=== PATIENT | female | born 1970 | race Caucasian/White ===

== ENCOUNTER 2017-06-07 12:29 | Inpatient (IN) | payer OTHER ==
[2017-06-07] VITALS (7 sets, daily range): BP systolic 109–138; BP diastolic 73–89
[~2017-06-07] VITALS: Ht 157.4 cm; Wt 65.3 kg
--- NOTE | ~2017-06-07 | PR ---
[place], [place] PROGRESS NOTE NAME: [id number] UNIT #: [id number] ROOM: [id number] DOCTOR: JOSE WRIGHT MD BIRTHDATE: [birth year] DOS: 06/09/2017 SUBJECTIVE: The patient was seen at her bedside today, 06/09/2017. She continues to complain of palpitations, slight breathlessness and moderate headache. She states that in general, she feels a bit better, but still does not feel well. Last evening, I did review her echocardiogram at length. I do not believe that she has a classic bicuspid aortic valve, although the valve does seem a bit odd appearing. There are 3 leaflets and the leaflets are fairly thin. Nonetheless, there is a peak gradient of 34 mmHg across the valve with a mean gradient of 20 mmHg. The effective outflow tract area is 1.1 cm2 consistent with moderate aortic stenosis. This is not expected based on the appearance of the valve and suggests that some other outflow tract obstruction is present, which I am not visualizing. PHYSICAL EXAMINATION: VITAL SIGNS: Today, her pulse is 90 and regular, blood pressure is 108/69. She is afebrile. She weighs 65.3 kilograms with a body mass index of 26.4. HEENT: Normocephalic, atraumatic. NECK: Supple. She has no jugular distention. Carotids are full. LUNGS: Respirations are unlabored. Chest is clear to auscultation and percussion. There is no presacral edema or chest wall tenderness. HEART: Has a regular rhythm with a soft S4 gallop. She has a grade 2/6 systolic ejection murmur along the upper left sternal border radiating towards the neck. No diastolic murmurs are present. The PMI is not displaced. ABDOMEN: Soft and normoactive. EXTREMITIES: Showed no edema. IMPRESSION: 1. Near syncope. 2. Headaches, etiology not clear, but probably due to migraine. 3. Systolic ejection murmur with outflow tract gradient. Etiology of the outflow tract gradient is not clear. PLAN: I discussed with the patient my findings and my concerns. I believe that further assessment with a transesophageal echocardiogram is appropriate and she has agreed. She does understand that there is a risk of sore throat, vomiting, aspiration, esophageal damage, etc. along with anesthesia reactions. Despite these risks, she does agree to proceed. Please see the [facility] report which will follow later today. I thank the hospitalist physicians for asking our advice regarding her care. [place], [place] PROGRESS NOTE NAME: THAIS GALVEZ UNIT #: [id number] ROOM: [facility] DOCTOR: JOSE WRIGHT MD BIRTHDATE: [birth year] JOSE WRIGHT MD CM:PNTRANS [id number] JOSE WRIGHT MD 06/09/17 1253 [id number]
[~2017-06-07 12:29] MED LIST: NAPROSYN500 MG PO; RELPAX40 MG PO
[2017-06-07] MEDS ORDERED: MUSCLE RELAXER (13:01)
[2017-06-07] MEDS ORDERED: FLONASE ALLERG9.9 ML INH (13:01)
[2017-06-07] MEDS ORDERED: PERCOCET 5-3251 EACH PO (13:02)
[2017-06-07 13:45] LABS: BASO % 0.6 % (0.0-1.0); EOS % 0.8 % (1.0-4.0); HEMATOCRIT 37.6 % (37.0-47.0); HEMOGLOBIN 12.7 g/dl (12.0-16.0); LYMPH # 0.7 10*3/uL (1.3-4.4); LYMPH % 13.6 % (27.0-41.0); MEAN CELL VOLUME 92.6 fl (81.0-99.0); MEAN CORPUSCULAR HGB 31.3 pg (27.0-31.0); MEAN CORPUSCULAR HGB CONC 33.8 g/dl (33.0-37.0); MEAN PLATELET VOLUME 9.7 fl (9.6-12.3); MONO # 0.6 10*3/uL (0.1-1.0); MONO % 11.7 % (3.0-9.0); NEUT # 3.8 10*3/uL (2.3-7.9); NEUT % 72.9 % (47.0-73.0); PLATELET COUNT AUTOMATED 219 10*3/uL (130-400); RED BLOOD COUNT 4.06 10*6/uL (4.10-5.10); RED CELL DISTRI WIDTH 11.6 % (0-14.5); WHITE BLOOD COUNT 5.2 10*3/uL (4.8-10.8)
[2017-06-07 14:03] LABS: ALBUMIN 3.3 gm/dl (3.1-4.5); ALKALINE PHOSPHATASE 79 U/L (45-117); BUN 14 mg/dl (7-24); CHLORIDE 102 mmol/L (98-107); CREATININE 0.81 mg/dL (0.55-1.02); LIPASE 133 U/L (73-393); MAGNESIUM 2.2 mg/dL (1.5-2.1); SGOT/AST 15 IU/L (3-35); SGPT/ALT 15 U/L (12-78); SODIUM 137 mmol/L (136-145); TOTAL PROTEIN 7.2 gm/dL (6.4-8.2)
[2017-06-07 14:05] LABS: BETA-HCG, QUANT < 1.0 mIU/mL (1-3)
[2017-06-07] MEDS ORDERED: CYCLOBENZAPRINE10 MG PO (16:36)
[2017-06-07] MEDS ORDERED: ZYRTEC10 MG PO (16:37)
[2017-06-08] VITALS: BP 128/84
[2017-06-08 06:59] LABS: BASO % 0.7 % (0.0-1.0); EOS # 0.1 10*3/uL (0.0-0.4); EOS % 2.5 % (1.0-4.0); HEMATOCRIT 35.9 % (37.0-47.0); HEMOGLOBIN 11.8 g/dl (12.0-16.0); LYMPH # 1.7 10*3/uL (1.3-4.4); LYMPH % 38.2 % (27.0-41.0); MEAN CELL VOLUME 93.7 fl (81.0-99.0); MEAN CORPUSCULAR HGB 30.8 pg (27.0-31.0); MEAN CORPUSCULAR HGB CONC 32.9 g/dl (33.0-37.0); MONO # 0.6 10*3/uL (0.1-1.0); MONO % 12.5 % (3.0-9.0); NEUT # 2.1 10*3/uL (2.3-7.9); NEUT % 45.7 % (47.0-73.0); PLATELET COUNT AUTOMATED 230 10*3/uL (130-400); RED BLOOD COUNT 3.83 10*6/uL (4.10-5.10); RED CELL DISTRI WIDTH 11.7 % (0-14.5); WHITE BLOOD COUNT 4.5 10*3/uL (4.8-10.8)
[2017-06-08 07:40] LABS: BUN 12 mg/dl (7-24); CHLORIDE 106 mmol/L (98-107); CHOLESTEROL 185 mg/dL (<200); CREATININE 0.62 mg/dL (0.55-1.02); MAGNESIUM 2.2 mg/dL (1.5-2.1); PHOSPHOROUS 2.5 mg/dL (2.5-4.9); SODIUM 141 mmol/L (136-145); TRIGLYCERIDES 73 mg/dl (<150); VLDL CHOLESTEROL 15 mg/dL (6-40)
[2017-06-08 07:48] LABS: FREE T4 1.01 ng/dl (0.76-1.46); HDL CHOLESTEROL 53 mg/dl (40-60); LDL CHOLESTEROL 117 mg/dL (9-159)
[2017-06-08 07:58] LABS: VITAMIN D, 25-HYDROXY 18.3 ng/mL (30-100)
[2017-06-08 08:00] VITALS: BP 122/78
[2017-06-08 12:00] VITALS: BP 136/78
[2017-06-08 16:00] VITALS: BP 122/79
[2017-06-08] MEDS ORDERED: MAXALT10 MG PO (16:43)
[2017-06-08 20:00] VITALS: BP 127/80
[2017-06-09] VITALS (9 sets, daily range): BP systolic 107–154; BP diastolic 67–94
[2017-06-09 06:55] LABS: BASO % 0.7 % (0.0-1.0); EOS # 0.2 10*3/uL (0.0-0.4); EOS % 3.6 % (1.0-4.0); HEMATOCRIT 33.5 % (37.0-47.0); LYMPH # 1.8 10*3/uL (1.3-4.4); LYMPH % 43.8 % (27.0-41.0); MEAN CELL VOLUME 94.9 fl (81.0-99.0); MEAN CORPUSCULAR HGB 31.2 pg (27.0-31.0); MEAN CORPUSCULAR HGB CONC 32.8 g/dl (33.0-37.0); MEAN PLATELET VOLUME 9.7 fl (9.6-12.3); MONO # 0.4 10*3/uL (0.1-1.0); MONO % 9.9 % (3.0-9.0); NEUT # 1.7 10*3/uL (2.3-7.9); NEUT % 41.8 % (47.0-73.0); PLATELET COUNT AUTOMATED 223 10*3/uL (130-400); RED BLOOD COUNT 3.53 10*6/uL (4.10-5.10); RED CELL DISTRI WIDTH 11.9 % (0-14.5); WHITE BLOOD COUNT 4.2 10*3/uL (4.8-10.8)
[2017-06-10] VITALS: BP 122/74
[2017-06-10 06:38] LABS: BASO % 0.4 % (0.0-1.0); EOS # 0.1 10*3/uL (0.0-0.4); EOS % 2.7 % (1.0-4.0); HEMATOCRIT 34.6 % (37.0-47.0); HEMOGLOBIN 11.5 g/dl (12.0-16.0); LYMPH # 1.9 10*3/uL (1.3-4.4); LYMPH % 38.8 % (27.0-41.0); MEAN CELL VOLUME 93.3 fl (81.0-99.0); MEAN CORPUSCULAR HGB CONC 33.2 g/dl (33.0-37.0); MEAN PLATELET VOLUME 9.9 fl (9.6-12.3); MONO # 0.3 10*3/uL (0.1-1.0); MONO % 5.6 % (3.0-9.0); NEUT # 2.5 10*3/uL (2.3-7.9); NEUT % 52.3 % (47.0-73.0); PLATELET COUNT AUTOMATED 265 10*3/uL (130-400); RED BLOOD COUNT 3.71 10*6/uL (4.10-5.10); RED CELL DISTRI WIDTH 11.5 % (0-14.5); WHITE BLOOD COUNT 4.8 10*3/uL (4.8-10.8)
[2017-06-10 08:00] VITALS: BP 132/84
[2017-06-10] MEDS ORDERED: INDERAL LA60 M1 PO (11:02)
[2017-06-10] MEDS ORDERED: VITAMIN D50000 UNIT PO (11:02)
== END 2017-06-10 12:03 | disposition home or self-care (01) | DRG 312 ==
LOC: ED 12:29 → EDHOLD 15:58 → 5E 15:58
PROVIDERS: Emergency Medicine; Internal Medicine; ADMIT Internal Medicine
PROC: B24BZZ4 Ultrasonography of Heart with Aorta, Transesophageal (ICD-10-PCS; principal; 2017-06-09)
DX: R55 Syncope and collapse (principal); E44.1 Mild protein-calorie malnutrition; Q23.1 Congenital insufficiency of aortic valve; G43.909 Migraine, unspecified, not intractable, without status migrainosus; R00.0 Tachycardia, unspecified; M47.22 Other spondylosis with radiculopathy, cervical region; M50.30 Other cervical disc degeneration, unspecified cervical region; D72.810 Lymphocytopenia; R70.0 Elevated erythrocyte sedimentation rate; R73.9 Hyperglycemia, unspecified; E83.41 Hypermagnesemia; D64.9 Anemia, unspecified; E55.9 Vitamin D deficiency, unspecified; Z90.710 Acquired absence of both cervix and uterus; Z98.51 Tubal ligation status; Z83.3 Family history of diabetes mellitus; Z82.49 Family history of ischemic heart disease and other diseases of the circulatory system; Z83.6 Family history of other diseases of the respiratory system; Z84.89 Family history of other specified conditions; Z79.899 Other long term (current) drug therapy; Z88.2 Allergy status to sulfonamides; Z88.8 Allergy status to other drugs, medicaments and biological substances; Z68.26 Body mass index [BMI] 26.0-26.9, adult

== ENCOUNTER → 2017-08-03 | Outpatient (CLI) | payer OTHER ==
[~2017-08-03] MED LIST changes: +CYCLOBENZAPRINE10 MG PO; +FLONASE ALLERG9.9 ML INH; +INDERAL LA60 M1 PO; +MAXALT10 MG PO; +MUSCLE RELAXER; +PERCOCET 5-3251 EACH PO; +VITAMIN D50000 UNIT PO; +ZYRTEC10 MG PO
== END | disposition home or self-care (01) ==
LOC: LAB 09:48
PROVIDERS: Psychiatry & Neurology Neurology
DX: G43.709 Chronic migraine without aura, not intractable, without status migrainosus (principal)

== ENCOUNTER → 2020-01-13 | Outpatient (CLI) | payer BC | END | disposition home or self-care (01) | LOC: CARD 09:27 | DX: I35.1 Nonrheumatic aortic (valve) insufficiency (principal); I35.0 Nonrheumatic aortic (valve) stenosis ==

== ENCOUNTER 2020-10-21 17:18 | Emergency (ER) | payer BC ==
[~2020-10-21] VITALS: Ht 154.9 cm; Wt 68.0 kg
[2020-10-21 18:01] LABS: BASO % 0.5 % (0.0-1.0); EOS # 0.2 10*3/uL (0.0-0.4); EOS % 3.2 % (1.0-4.0); HEMATOCRIT 43.4 % (37.0-47.0); LYMPH # 2.5 10*3/uL (1.3-4.4); LYMPH % 34.4 % (27.0-41.0); MEAN CELL VOLUME 93.9 fl (81.0-99.0); MEAN CORPUSCULAR HGB 30.1 pg (27.0-31.0); MEAN PLATELET VOLUME 9.6 fl (9.6-12.3); MONO # 0.5 10*3/uL (0.1-1.0); MONO % 6.8 % (3.0-9.0); PLATELET COUNT AUTOMATED 268 10*3/uL (130-400); RED BLOOD COUNT 4.62 10*6/uL (4.10-5.10); RED CELL DISTRI WIDTH 11.9 % (0-14.5); WHITE BLOOD COUNT 7.3 10*3/uL (4.8-10.8)
[2020-10-21 18:10] LABS: ACT PARTIAL THROMBO TIME 24.1 SECONDS (20.0-32.1); INTERNATIONAL NORM RATIO 0.9 (2.0-3.5)
[2020-10-21 18:15] LABS: ALKALINE PHOSPHATASE 104 U/L (45-117); BUN 12 mg/dl (7-24); CHLORIDE 106 mmol/L (98-107); CREATININE 0.79 mg/dL (0.55-1.02); LIPASE 112 U/L (73-393); POTASSIUM 3.7 mmol/L (3.5-5.1); SGOT/AST 13 IU/L (3-35); SGPT/ALT 23 U/L (12-78); SODIUM 138 mmol/L (136-145); TOTAL PROTEIN 7.6 gm/dL (6.4-8.2)
[2020-10-21 18:18] LABS: TROPONIN I < 0.015 ng/ml (<0.045)
== END 2020-10-21 19:00 | disposition home or self-care (01) ==
LOC: ED 17:18
PROVIDERS: Emergency Medicine
DX: M79.661 Pain in right lower leg (principal); Z98.890 Other specified postprocedural states; Z98.51 Tubal ligation status; Z90.710 Acquired absence of both cervix and uterus; Z88.2 Allergy status to sulfonamides; Z79.899 Other long term (current) drug therapy

== ENCOUNTER → 2020-10-22 | Outpatient (CLI) | payer BC ==
[~2020-10-22] MED LIST changes: +ATIVAN0.5 MG PO; +ETODOLAC600 MG PO
== END | disposition home or self-care (01) ==
LOC: MAMMO 10:19
PROVIDERS: ATTEND Family Medicine
DX: Z12.31 Encounter for screening mammogram for malignant neoplasm of breast (principal); N63.21 Unspecified lump in the left breast, upper outer quadrant

== ENCOUNTER 2020-10-25 09:22 | Observation (INO) | payer BC ==
[2020-10-25] VITALS (14 sets, daily range): BP systolic 103–142; BP diastolic 62–91
[~2020-10-25] VITALS: Ht 165.1 cm; Wt 68.0 kg
[~2020-10-25 09:22] MED LIST changes: -ATIVAN0.5 MG PO; -ETODOLAC600 MG PO
[2020-10-25 09:41] LABS: BASO # 0.1 10*3/uL (0.0-0.1); BASO % 0.9 % (0.0-1.0); EOS # 0.2 10*3/uL (0.0-0.4); EOS % 3.4 % (1.0-4.0); HEMATOCRIT 42.3 % (37.0-47.0); LYMPH # 1.7 10*3/uL (1.3-4.4); LYMPH % 28.9 % (27.0-41.0); MEAN CELL VOLUME 90.4 fl (81.0-99.0); MEAN CORPUSCULAR HGB 29.7 pg (27.0-31.0); MEAN CORPUSCULAR HGB CONC 32.9 g/dl (33.0-37.0); MEAN PLATELET VOLUME 9.4 fl (9.6-12.3); MONO # 0.5 10*3/uL (0.1-1.0); MONO % 8.4 % (3.0-9.0); NEUT # 3.4 10*3/uL (2.3-7.9); NEUT % 58.2 % (47.0-73.0); PLATELET COUNT AUTOMATED 271 10*3/uL (130-400); RED BLOOD COUNT 4.68 10*6/uL (4.10-5.10); RED CELL DISTRI WIDTH 11.8 % (0-14.5); WHITE BLOOD COUNT 5.8 10*3/uL (4.8-10.8)
[2020-10-25 09:51] LABS: ACT PARTIAL THROMBO TIME 25.2 SECONDS (20.0-32.1); INTERNATIONAL NORM RATIO 0.9 (2.0-3.5)
[2020-10-25 09:57] LABS: ALKALINE PHOSPHATASE 95 U/L (45-117); BUN 13 mg/dl (7-24); CHLORIDE 107 mmol/L (98-107); CREATININE 0.85 mg/dL (0.55-1.02); POTASSIUM 3.9 mmol/L (3.5-5.1); SGOT/AST 15 IU/L (3-35); SGPT/ALT 23 U/L (12-78); SODIUM 140 mmol/L (136-145); TOTAL PROTEIN 7.4 gm/dL (6.4-8.2)
[2020-10-25 09:59] LABS: TROPONIN I < 0.015 ng/ml (<0.045)
[2020-10-25 10:09] LABS: LIPASE 86 U/L (73-393)
[2020-10-25] MEDS ORDERED: ETODOLAC600 MG PO (12:47)
[2020-10-26 06:46] LABS: ACT PARTIAL THROMBO TIME 25.1 SECONDS (20.0-32.1); ALBUMIN 3.7 gm/dl (3.1-4.5); ALKALINE PHOSPHATASE 88 U/L (45-117); BASO % 0.6 % (0.0-1.0); BUN 16 mg/dl (7-24); CHLORIDE 105 mmol/L (98-107); CHOLESTEROL 192 mg/dL (<200); CREATININE 0.86 mg/dL (0.55-1.02); EOS # 0.2 10*3/uL (0.0-0.4); EOS % 3.4 % (1.0-4.0); FREE T4 1.25 ng/dl (0.76-1.46); HDL CHOLESTEROL 62 mg/dl (40-60); HEMATOCRIT 42.9 % (37.0-47.0); LDL CHOLESTEROL 114 mg/dL (9-159); LYMPH # 2.1 10*3/uL (1.3-4.4); LYMPH % 41.2 % (27.0-41.0); MEAN CELL VOLUME 92.5 fl (81.0-99.0); MEAN CORPUSCULAR HGB 29.5 pg (27.0-31.0); MEAN CORPUSCULAR HGB CONC 31.9 g/dl (33.0-37.0); MEAN PLATELET VOLUME 9.6 fl (9.6-12.3); MONO # 0.4 10*3/uL (0.1-1.0); MONO % 8.6 % (3.0-9.0); NEUT # 2.3 10*3/uL (2.3-7.9); PLATELET COUNT AUTOMATED 225 10*3/uL (130-400); POTASSIUM 3.4 mmol/L (3.5-5.1); RED BLOOD COUNT 4.64 10*6/uL (4.10-5.10); RED CELL DISTRI WIDTH 11.9 % (0-14.5); SGOT/AST 10 IU/L (3-35); SGPT/ALT 20 U/L (12-78); SODIUM 140 mmol/L (136-145); TOTAL PROTEIN 6.9 gm/dL (6.4-8.2); TRIGLYCERIDES 79 mg/dl (<150); VLDL CHOLESTEROL 16 mg/dL (6-40)
[2020-10-26 07:24] LABS: VITAMIN D, 25-HYDROXY 27.1 ng/mL (30-100)
[2020-10-26 08:00] VITALS: BP 110/64
[2020-10-26 12:00] VITALS: BP 108/68
== END 2020-10-26 17:00 | disposition home or self-care (01) ==
LOC: ED 09:22 → EDHOLD 12:06 → 5E 22:37
PROVIDERS: Emergency Medicine; Family Medicine; ADMIT Internal Medicine; ATTEND Internal Medicine
DX: R07.89 Other chest pain (principal); R79.89 Other specified abnormal findings of blood chemistry; R73.9 Hyperglycemia, unspecified; M19.90 Unspecified osteoarthritis, unspecified site; R06.02 Shortness of breath; E87.6 Hypokalemia; I35.0 Nonrheumatic aortic (valve) stenosis; Q23.1 Congenital insufficiency of aortic valve; E55.9 Vitamin D deficiency, unspecified; Z98.890 Other specified postprocedural states; Z90.710 Acquired absence of both cervix and uterus

== ENCOUNTER → 2020-10-29 | Outpatient (CLI) | payer BC ==
[~2020-10-29] MED LIST changes: +ATIVAN0.5 MG PO; +ETODOLAC600 MG PO
[2020-10-29 16:36] LABS: BASO % 0.6 % (0.0-1.0); EOS # 0.2 10*3/uL (0.0-0.4); EOS % 3.5 % (1.0-4.0); LYMPH # 1.9 10*3/uL (1.3-4.4); LYMPH % 36.3 % (27.0-41.0); MEAN CORPUSCULAR HGB 30.4 pg (27.0-31.0); MEAN CORPUSCULAR HGB CONC 32.3 g/dl (33.0-37.0); MEAN PLATELET VOLUME 9.5 fl (9.6-12.3); MONO # 0.4 10*3/uL (0.1-1.0); MONO % 7.8 % (3.0-9.0); NEUT # 2.6 10*3/uL (2.3-7.9); NEUT % 51.6 % (47.0-73.0); PLATELET COUNT AUTOMATED 224 10*3/uL (130-400); RED BLOOD COUNT 4.15 10*6/uL (4.10-5.10); RED CELL DISTRI WIDTH 11.9 % (0-14.5); WHITE BLOOD COUNT 5.1 10*3/uL (4.8-10.8)
[2020-10-30 14:08] LABS: ANTI-DSDNA ANTIBODIES <1 IU/mL (0-9); ANTI-RNP ANTIBODIES <0.2 AI (0.0-0.9); ANTICHROMATIN ANTIBODIES <0.2 AI (0.0-0.9); ANTISCLERODERMA-70 AB <0.2 AI (0.0-0.9); SJOGREN ANTI-SS-A <0.2 AI (0.0-0.9); SJOREN AB, ANTI-SS-B <0.2 AI (0.0-0.9)
== END | disposition home or self-care (01) ==
LOC: LAB 15:30 → US 15:30
PROVIDERS: ATTEND Family Medicine
DX: S40.021A Contusion of right upper arm, initial encounter (principal); E55.9 Vitamin D deficiency, unspecified; M25.50 Pain in unspecified joint; R53.82 Chronic fatigue, unspecified; X58.XXXA Exposure to other specified factors, initial encounter; Y93.89 Activity, other specified; Y92.89 Other specified places as the place of occurrence of the external cause; Y99.8 Other external cause status

== ENCOUNTER 2020-11-03 10:04 | Emergency (ER) | payer BC ==
[~2020-11-03] VITALS: Wt 68.0 kg
[~2020-11-03 10:04] MED LIST changes: -ATIVAN0.5 MG PO
[2020-11-03 10:40] LABS: BASO % 0.5 % (0.0-1.0); EOS # 0.3 10*3/uL (0.0-0.4); EOS % 4.6 % (1.0-4.0); HEMATOCRIT 39.8 % (37.0-47.0); LYMPH # 1.4 10*3/uL (1.3-4.4); LYMPH % 25.8 % (27.0-41.0); MEAN CELL VOLUME 93.2 fl (81.0-99.0); MEAN CORPUSCULAR HGB CONC 32.2 g/dl (33.0-37.0); MEAN PLATELET VOLUME 9.6 fl (9.6-12.3); MONO # 0.3 10*3/uL (0.1-1.0); MONO % 5.9 % (3.0-9.0); NEUT # 3.4 10*3/uL (2.3-7.9); NEUT % 62.8 % (47.0-73.0); PLATELET COUNT AUTOMATED 260 10*3/uL (130-400); RED BLOOD COUNT 4.27 10*6/uL (4.10-5.10); RED CELL DISTRI WIDTH 11.9 % (0-14.5); WHITE BLOOD COUNT 5.5 10*3/uL (4.8-10.8)
[2020-11-03 10:52] LABS: ACT PARTIAL THROMBO TIME 24.8 SECONDS (20.0-32.1); INTERNATIONAL NORM RATIO 0.9 (2.0-3.5)
[2020-11-03 10:55] LABS: ALBUMIN 3.6 gm/dl (3.1-4.5); ALKALINE PHOSPHATASE 91 U/L (45-117); BUN 15 mg/dl (7-24); CHLORIDE 108 mmol/L (98-107); CREATININE 0.82 mg/dL (0.55-1.02); LIPASE 85 U/L (73-393); SGOT/AST 14 IU/L (3-35); SGPT/ALT 22 U/L (12-78); SODIUM 141 mmol/L (136-145); TOTAL PROTEIN 6.9 gm/dL (6.4-8.2); TROPONIN I < 0.015 ng/ml (<0.045)
[2020-11-03 12:31] LABS: BILIRUBIN Negative (Negative); BLOOD Negative (Negative); CLARITY Clear (Clear); COLOR Yellow (Yellow); GLUCOSE Negative (Negative); KETONE Negative (Negative); LEUKO ESTERASE Negative (Negative); NITRITE Negative (Negative); SPECIFIC GRAVITY <= 1.005 (1.001-1.030); UROBILINOGEN 0.2 E.U./dl (0.0-1.0)
[2020-11-03 12:42] LABS: URINE OPIATES < 300 (300ng/ml)
[2020-11-03] MEDS ORDERED: ATIVAN0.5 MG PO (12:45)
[2020-11-03 12:51] LABS: URINE AMPHETAMINES > 1000 (1000ng/ml); URINE BARBITURATES < 200 (200ng/ml); URINE BENZODIAZEPINES < 200 (200ng/ml); URINE CANNABINOIDS (THC) < 50 (50ng/ml); URINE COCAINE < 300 (300ng/ml); URINE METHADONE < 300 (300ng/ml); URINE PHENCYCLIDINE < 25 (25ng/ml)
== END 2020-11-03 13:14 | disposition home or self-care (01) ==
LOC: ED 10:04
PROVIDERS: Emergency Medicine; Nurse Practitioner
DX: R59.1 Generalized enlarged lymph nodes (principal); F41.9 Anxiety disorder, unspecified; K59.00 Constipation, unspecified; R92.8 Other abnormal and inconclusive findings on diagnostic imaging of breast; H60.91 Unspecified otitis externa, right ear; Z88.2 Allergy status to sulfonamides; Z79.899 Other long term (current) drug therapy; Z90.710 Acquired absence of both cervix and uterus; Z98.51 Tubal ligation status; Z98.890 Other specified postprocedural states; Z20.822 Contact with and (suspected) exposure to COVID-19

== ENCOUNTER 2020-11-06 14:59 | Emergency (ER) | payer BC ==
[~2020-11-06] VITALS: Ht 157.4 cm; Wt 72.6 kg
[~2020-11-06 14:59] MED LIST changes: +ATIVAN0.5 MG PO
== END 2020-11-06 15:10 | disposition left against medical advice (07) ==
LOC: ED 14:59
DX: R06.02 Shortness of breath (principal); R22.0 Localized swelling, mass and lump, head; Z53.21 Procedure and treatment not carried out due to patient leaving prior to being seen by health care provider

== ENCOUNTER → 2020-11-12 | Outpatient (CLI) | payer BC | END | disposition home or self-care (01) | LOC: MAMMO 07:51 | PROVIDERS: ATTEND Family Medicine | DX: R92.1 Mammographic calcification found on diagnostic imaging of breast (principal); N63.20 Unspecified lump in the left breast, unspecified quadrant ==

== ENCOUNTER → 2022-11-11 | Outpatient (CLI) | payer MEDICAID ==
[2022-11-11 14:57] LABS: BASO % 0.9 % (0.0-1.0); EOS # 0.2 10*3/uL (0.0-0.4); EOS % 4.3 % (1.0-4.0); HEMATOCRIT 40.9 % (37.0-47.0); LYMPH # 1.4 10*3/uL (1.3-4.4); LYMPH % 30.8 % (27.0-41.0); MEAN CELL VOLUME 91.7 fl (81.0-99.0); MEAN CORPUSCULAR HGB 29.6 pg (27.0-31.0); MEAN CORPUSCULAR HGB CONC 32.3 g/dl (33.0-37.0); MEAN PLATELET VOLUME 9.7 fl (9.6-12.3); MONO # 0.4 10*3/uL (0.1-1.0); MONO % 7.5 % (3.0-9.0); NEUT # 2.6 10*3/uL (2.3-7.9); NEUT % 56.3 % (47.0-73.0); PLATELET COUNT AUTOMATED 267 10*3/uL (130-400); RED BLOOD COUNT 4.46 10*6/uL (4.10-5.10); RED CELL DISTRI WIDTH 11.8 % (0-14.5); WHITE BLOOD COUNT 4.7 10*3/uL (4.8-10.8)
[2022-11-11 15:09] LABS: BUN 14 mg/dl (9-23); CHLORIDE 103 mmol/L (98-107); POTASSIUM 3.4 mmol/L (3.4-5.1)
== END | disposition home or self-care (01) ==
LOC: LAB 14:33
PROVIDERS: ATTEND Podiatrist Foot & Ankle Surgery
DX: S90.32XA Contusion of left foot, initial encounter (principal); L03.032 Cellulitis of left toe; M77.32 Calcaneal spur, left foot; X58.XXXA Exposure to other specified factors, initial encounter; Y93.89 Activity, other specified; Y92.89 Other specified places as the place of occurrence of the external cause; Y99.8 Other external cause status

== ENCOUNTER → 2023-01-16 | Outpatient (CLI) | payer MEDICAID | END | disposition home or self-care (01) | LOC: CARD 01:31 | PROVIDERS: ATTEND Internal Medicine Cardiovascular Disease | DX: I08.3 Combined rheumatic disorders of mitral, aortic and tricuspid valves (principal) ==

== ENCOUNTER → 2023-03-23 | Outpatient (CLI) | payer MEDICAID | END | disposition home or self-care (01) | LOC: RESCLI 01:04 | PROVIDERS: ATTEND Emergency Medicine | DX: R11.0 Nausea (principal); M50.30 Other cervical disc degeneration, unspecified cervical region; M47.9 Spondylosis, unspecified; Z12.11 Encounter for screening for malignant neoplasm of colon; Z12.31 Encounter for screening mammogram for malignant neoplasm of breast; R13.10 Dysphagia, unspecified; H66.90 Otitis media, unspecified, unspecified ear; I10 Essential (primary) hypertension; M79.7 Fibromyalgia; E55.9 Vitamin D deficiency, unspecified; R60.9 Edema, unspecified; Z98.890 Other specified postprocedural states; Z88.8 Allergy status to other drugs, medicaments and biological substances; Z82.49 Family history of ischemic heart disease and other diseases of the circulatory system; Z79.899 Other long term (current) drug therapy ==

== ENCOUNTER → 2023-04-04 | Outpatient (CLI) | payer MEDICAID | END | disposition home or self-care (01) | LOC: RESCLI 00:34 | PROVIDERS: ATTEND Internal Medicine | DX: M47.9 Spondylosis, unspecified (principal); J30.2 Other seasonal allergic rhinitis; M79.7 Fibromyalgia; I10 Essential (primary) hypertension; F41.9 Anxiety disorder, unspecified; R60.9 Edema, unspecified; M79.2 Neuralgia and neuritis, unspecified; Z98.890 Other specified postprocedural states; Z82.49 Family history of ischemic heart disease and other diseases of the circulatory system; Z79.899 Other long term (current) drug therapy ==

== ENCOUNTER → 2023-04-17 | Day surgery (SDC) | payer MEDICAID ==
[~2023-04-17] VITALS: Ht 154.9 cm; Wt 59.0 kg
[~2023-04-17] MED LIST changes: +DICYCLOMINE HYD10 MG PO; +NEURONTIN300 MG PO; +TRAMADOL HCL50 MG PO
[2023-04-17 08:48] VITALS: BP 132/85
[2023-04-17 09:40] VITALS: BP 110/65
[2023-04-17 09:55] VITALS: BP 119/71
[2023-04-17 10:10] VITALS: BP 110/65
[2023-04-17 10:25] VITALS: BP 123/66
[2023-04-17 10:40] VITALS: BP 115/61
== END ==
LOC: SDC 04-13 13:15
PROVIDERS: ATTEND Surgery
DX: K59.00 Constipation, unspecified (principal); R14.0 Abdominal distension (gaseous); I11.9 Hypertensive heart disease without heart failure; Z98.890 Other specified postprocedural states

== ENCOUNTER → 2023-06-09 | Outpatient (CLI) | payer MEDICAID | END | disposition home or self-care (01) | LOC: RESCLI 16:11 | PROVIDERS: ATTEND Internal Medicine | DX: L23.7 Allergic contact dermatitis due to plants, except food (principal); I10 Essential (primary) hypertension; M25.50 Pain in unspecified joint; Z88.2 Allergy status to sulfonamides; Z88.8 Allergy status to other drugs, medicaments and biological substances; Z82.49 Family history of ischemic heart disease and other diseases of the circulatory system; Z98.890 Other specified postprocedural states; Z79.899 Other long term (current) drug therapy ==

== ENCOUNTER → 2023-06-21 | Outpatient (CLI) | payer MEDICAID | END | disposition home or self-care (01) | LOC: RESCLI 01:48 | PROVIDERS: ATTEND Family Medicine | DX: E55.9 Vitamin D deficiency, unspecified (principal); M79.7 Fibromyalgia; R11.0 Nausea; M47.9 Spondylosis, unspecified; J30.2 Other seasonal allergic rhinitis; H60.90 Unspecified otitis externa, unspecified ear; I10 Essential (primary) hypertension; F41.9 Anxiety disorder, unspecified; R60.9 Edema, unspecified; M79.2 Neuralgia and neuritis, unspecified; L23.7 Allergic contact dermatitis due to plants, except food; R13.10 Dysphagia, unspecified; Z98.890 Other specified postprocedural states; M50.30 Other cervical disc degeneration, unspecified cervical region; M51.36 Other intervertebral disc degeneration, lumbar region; M48.10 Ankylosing hyperostosis [Forestier], site unspecified; R06.09 Other forms of dyspnea; Z82.49 Family history of ischemic heart disease and other diseases of the circulatory system; Z88.8 Allergy status to other drugs, medicaments and biological substances; Z79.899 Other long term (current) drug therapy ==

== ENCOUNTER → 2024-05-24 | Outpatient (CLI) | payer MEDICARE, MEDICAID | END | disposition home or self-care (01) | LOC: RESCLI 01:28 | PROVIDERS: ATTEND Internal Medicine | DX: M25.50 Pain in unspecified joint (principal); M47.9 Spondylosis, unspecified; Q23.1 Congenital insufficiency of aortic valve; G43.109 Migraine with aura, not intractable, without status migrainosus; M51.36 Other intervertebral disc degeneration, lumbar region; R53.82 Chronic fatigue, unspecified; I10 Essential (primary) hypertension; M79.7 Fibromyalgia; M79.2 Neuralgia and neuritis, unspecified; K58.9 Irritable bowel syndrome, unspecified; H60.90 Unspecified otitis externa, unspecified ear; R60.0 Localized edema; J30.2 Other seasonal allergic rhinitis; E55.9 Vitamin D deficiency, unspecified; R53.83 Other fatigue; Z88.2 Allergy status to sulfonamides; Z88.8 Allergy status to other drugs, medicaments and biological substances; Z98.890 Other specified postprocedural states; Z82.49 Family history of ischemic heart disease and other diseases of the circulatory system; Z79.899 Other long term (current) drug therapy ==

== ENCOUNTER → 2025-01-10 | Outpatient (CLI) | payer OTHER | END | disposition home or self-care (01) | LOC: RESCLI 13:04 | PROVIDERS: ATTEND Internal Medicine | DX: J32.9 Chronic sinusitis, unspecified (principal); R60.0 Localized edema; E55.9 Vitamin D deficiency, unspecified; J30.2 Other seasonal allergic rhinitis; M50.30 Other cervical disc degeneration, unspecified cervical region; K58.9 Irritable bowel syndrome, unspecified; M47.9 Spondylosis, unspecified; I10 Essential (primary) hypertension; R11.0 Nausea; H66.90 Otitis media, unspecified, unspecified ear; Z79.899 Other long term (current) drug therapy; Z88.8 Allergy status to other drugs, medicaments and biological substances; Z98.890 Other specified postprocedural states ==

== ENCOUNTER 2025-05-30 15:21 | Emergency (ER) | payer OTHER ==
[~2025-05-30] VITALS: Ht 154.9 cm; Wt 49.9 kg
[2025-05-30] MEDS ORDERED: methylPREDNISolone sod succ 1,000 MG/16 ML VIAL IM ONE (16:00)
[2025-05-30] MEDS ORDERED: Cetirizine Hydrochloride 5 MG/5 ML UDC PO ONE (16:00)
[2025-05-30] MEDS ORDERED: PREDNISONE10 M1 PO (17:16)
[2025-05-30] MEDS ORDERED: ZYRTEC10 M2 PO (17:16)
[2025-05-30] MEDS ORDERED: [UNRECOGNIZED DRUG - OTHER] PO (17:19)
== END 2025-05-30 17:33 | disposition home or self-care (01) ==
LOC: ED 15:21
DX: L23.7 Allergic contact dermatitis due to plants, except food (principal); Z79.899 Other long term (current) drug therapy; Z88.2 Allergy status to sulfonamides; Z90.710 Acquired absence of both cervix and uterus; Z98.51 Tubal ligation status; Z98.890 Other specified postprocedural states

== ENCOUNTER → 2025-06-02 | Outpatient (CLI) | payer OTHER ==
[~2025-06-02] MED LIST changes: +PREDNISONE10 M1 PO; +ZYRTEC10 M2 PO; +[UNRECOGNIZED DRUG - OTHER] PO
== END | disposition home or self-care (01) ==
LOC: RESCLI 14:27
PROVIDERS: ATTEND Internal Medicine
DX: L03.90 Cellulitis, unspecified (principal); I10 Essential (primary) hypertension; Z88.8 Allergy status to other drugs, medicaments and biological substances; Z79.899 Other long term (current) drug therapy